=== PATIENT | male | born 1965 ===

== ENCOUNTER 2018-06-10 06:19 | Day surgery (SDC) | payer BC ==
--- NOTE | 2018-05-28 09:05 | HP ---
AMENDED REPORT NOW INCLUDES COSIGNER DESIGNATION CC: Dr. Shell * PREOPERATIVE HISTORY AND PHYSICAL: DATE OF ADMISSION/SURGERY: DATE OF PREOPERATIVE HISTORY AND PHYSICAL EXAMINATION: 05/27/18. This patient is scheduled for same-day surgery by Dr. Hurd on 06/10/18. ATTENDING SURGEON: Dr. Viral Hurd * (dictated by Reina James NP). CHIEF COMPLAINT: Umbilical hernia. HISTORY OF PRESENT ILLNESS: The patient is a 53-year-old male referred to Dr. Hurd by Dr. Shell for evaluation of umbilical hernia. The patient reports he has had an umbilical hernia for about 1 year; he denies any pain, but notes that the hernia is enlarging and he has had to manually reduce it. He denies any signs or symptoms to suggest incarceration or strangulation. He has never had abdominal surgery. Dr. Hurd examined the patient and notes a reducible umbilical hernia with a 1 [address] Hurd reviewed the findings with the patient and has recommended open umbilical hernia repair with possible mesh as a same-day surgery procedure and has discussed the nature of the surgical procedure, the rationale for the procedure, the relevant risks and benefits, and today I reviewed the expected postoperative care and recovery. The patient has had a chance to ask questions and stated that he understands the information and is satisfied with the answers given to his questions. He will sign surgical consent on the day of surgery. PAST MEDICAL HISTORY: Osteoarthritis in both hips. PAST SURGICAL HISTORY: Right hip resurfacing in January 2018 in [place]. MEDICATIONS: None currently. ALLERGIES: No known drug allergies. SOCIAL HISTORY: He is and is a senior [employer] developer; he is a nonsmoker and rarely drinks alcohol and denies the use of other substances. FAMILY HISTORY: No known anesthesia complications, bleeding tendencies, or clotting disorders. REVIEW OF SYSTEMS: Constitutional: No fevers, chills, excessive fatigue, or weight loss. Endocrine: No diabetes or thyroid disease. Hematologic: No easy bruising or bleeding. He has never received a blood transfusion. Respiratory: No dyspnea on exertion. No chronic cough. Cardiovascular: No anginal chest pain. No palpitations. Gastrointestinal: No nausea, vomiting, diarrhea, GI bleeding, or constipation. No change in bowel habits. Genitourinary: No dysuria. Musculoskeletal: No complaints of back or joint pain. He does have osteoarthritis in both hips. Integumentary: No chronic rashes or skin changes. Neurologic: No headache or blurred vision. No areas of focal weakness or numbness. General: No history of deep vein thrombosis or pulmonary embolism. No previous anesthesia complications. No bleeding tendencies. PHYSICAL EXAMINATION GENERAL SURVEY: The patient is a 53-year-old male, well developed, well nourished, in no acute distress. VITAL SIGNS: Height 72 inches, weight 201 pounds, body mass index 27.3. Blood pressure 120/82, pulse 72 and regular, respiratory rate 16, temperature 97.3 tympanic. HEENT: Benign. NECK: Supple. No cervical lymphadenopathy. LUNGS: Breath sounds bilaterally clear and equal. HEART: Regular rate and rhythm. No murmurs or rubs appreciated. ABDOMEN: Active bowel sounds. Obvious umbilical hernia, reducible, 1 to 2 cm defect, nontender. No other obvious masses or organomegaly. Abdomen is soft and nondistended. GENITALIA: Exam deferred. RECTAL: Exam deferred. BACK: No CVA tenderness. EXTREMITIES: Warm without edema or skin ulceration. NEUROLOGIC: Alert and oriented x3. Steady gait. SKIN: Warm, dry, intact. IMPRESSION: Umbilical hernia. PLAN: Same-day surgery admission to Dr. Hurd' service on 06/10/18, for open umbilical hernia repair with possible mesh. CARMENCITA JAMES, FACUNDO [id number]/[facility] #: [id number] [facility]ITALBib
[~2018-06-10 06:19] MED LIST: Buffered Lidocaine 0.9% SYRIN* 5 ML/SYR SYRINGE INTRADERM ONE; Sodium Citrate/Citric Acid* 15 ML UDC PO ONE
[2018-06-10] MEDS ORDERED: ceFAZolin 2 GM PREMIX in ORs 2 GM/50 ML BAG IVPB ONE (06:42)
[2018-06-10] MEDS ORDERED: Sodium Citrate/Citric Acid* 15 ML UDC ONE (06:42)
[2018-06-10] MEDS ORDERED: Buffered Lidocaine 0.9% SYRIN* 5 ML/SYR SYRINGE ONE (06:43)
[2018-06-10] MEDS ORDERED: Bupivacaine 0.5% W/EPI SDV* 30 ML VIAL ONE (07:12)
[2018-06-10] MEDS ORDERED: Lidocaine 1% INJ* 10 MG/ML 30 ML SDV ONE (07:12)
[2018-06-10] MEDS ORDERED: fentaNYL* 50 MCG/ML 2 ML VIAL (100 MCG VIAL) ONE (07:22)
[2018-06-10] MEDS ORDERED: Midazolam* 1 MG/ML 2 ML VIAL (2 MG) ONE (07:22)
[2018-06-10] MEDS ORDERED: Propofol* 10 MG/ML 20 ML BTL IV PUSH ONE (07:33)
[2018-06-10] MEDS ORDERED: Lidocaine 2% PF * 5 ML VIAL ONE (07:33)
[2018-06-10] MEDS ORDERED: Naloxone* 0.4 MG/ML 1 ML VIAL IV PRN (07:55)
--- NOTE | 2018-06-10 08:12 | OP ---
Operative Report - Blank - Operative Report Date of Operation: 06/10/18 Note: Brief Operative Note Preop Dx: umbilical hernia Postop Dx: same Procedure: open repair umbilical hernia (primary repair) Anesthesia: local MAC Surgeon: Vickey Skip Loader: MIK Holguin Fluids: 700 ml RL EBL: none Specimen: none Drains: none Findings: dictated
[2018-06-10] MEDS ORDERED: Acetaminophen TAB* 325 MG PO PRN (08:13)
[2018-06-10 09:17] VITALS: BP 114/90
--- NOTE | 2018-06-12 08:59 | OP ---
CC: Dr. Orestes Shell * DATE OF SURGERY: 06/10/18 - [facility] DATE OF : 65 SURGEON: Dr. Hurd. DAIRY CONSULTANT: MIK Morataya ANESTHESIA: Local MAC. PRE-OP DIAGNOSIS: Umbilical hernia. POST-OP DIAGNOSIS: Umbilical hernia. OPERATIVE PROCEDURE: Open repair of umbilical hernia. ESTIMATED BLOOD LOSS: None. IV FLUIDS: 700 mL crystalloid. SPECIMENS: None. DRAINS: None. COMPLICATIONS: None. COUNTS: Instrument, needle, and sponge counts correct. DESCRIPTION OF PROCEDURE: The patient was brought to the operating room and placed on the table supine. Sequential compression devices were placed on both lower extremities. Intravenous antibiotics were administered. Intravenous sedation was administered. He was prepped and draped in the usual sterile fashion and time-out was performed. Local anesthetic was infiltrated into the skin and soft tissue surrounding the umbilicus. A curvilinear infraumbilical incision was created and the umbilical stalk was dissected out, elevated off the abdominal wall. Fat-containing umbilical hernia was identified. The defect itself was about 1.5 cm. The edges of the fascia were identified and then the defect was closed with 0 Ethibond suture in [id number] fashion. The umbilical stalk was reapproximated to the anterior abdominal wall with 3-0 Vicryl. Skin incision was closed with 4-0 Monocryl in subcuticular fashion and Steri-Strips were applied. Dressing was applied. The patient tolerated this procedure well, was extubated and transferred to Recovery in stable condition. [id number]/[facility] #: [id number] MTDD
== END 2018-06-10 10:00 | disposition home or self-care (01) ==
LOC: OR 06:19
PROVIDERS: ATTEND Surgery
DX: K42.9 Umbilical hernia without obstruction or gangrene (principal); Z87.891 Personal history of nicotine dependence; M19.90 Unspecified osteoarthritis, unspecified site; R00.2 Palpitations
CPT/HCPCS: A9270-GY; J0690; J2250; J2704; J3010

== ENCOUNTER 2018-12-17 07:59 | Emergency (ER) | payer BC ==
[2018-12-17 08:08] VITALS: BP 132/91
--- NOTE | 2018-12-17 14:06 | UC ---
Throat Pain/Nasal Moisés HPI - HPI Summary HPI Summary: PATIENT ARRIVES COMPLAINING OF 18 HOURS OF SORE THROAT. NO INCREASE IN PAIN WITH SWALLOWING. DENIES ANY FEVER. NO COUGH, CONGESTION, NAUSEA OR ANY OTHER SYMPTOMS. IS REQUESTING A STREP TEST. - History of Current Complaint Chief Complaint: UCGeneralIllness Stated Complaint: SORE THROAT Time Seen by Provider: 12/17/18 08:11 Hx Obtained From: Patient Onset/Duration: Gradual Onset, Still Present Severity: Mild Pain Intensity: 2 Pain Scale Used: 0-10 Numeric Cough: None Associated Signs & Symptoms: Negative: Nasal Discharge, Fever - Allergies/Home Medications Allergies/Adverse Reactions: Allergies Allergy/AdvReac Type Severity Reaction Status Date / Time No Known Allergies Allergy Verified 12/17/18 08:09 PMH/Surg Hx/FS Hx/Imm Hx Previously Healthy: Yes - Surgical History Surgical History: Yes Surgery Procedure, Year, and Place: RIGHT HIP RESURFACED-01/[id number] left [facility] 2019,hernia repair - Family History Known Family History: Positive: Non-Contributory - Social History Alcohol Use: Occasionally Substance Use Type: None Smoking Status (MU): Former Smoker Amount Used/How Often: 1 PACK PER YEAR When Did the Patient Quit Smoking/Using Tobacco: 5-10 YEARS AGO Review of Systems All Other Systems Reviewed And Are Negative: Yes Constitutional: Positive: Negative ENT: Positive: Sore Throat Respiratory: Positive: Negative Cardiovascular: Positive: Negative Gastrointestinal: Positive: Negative Physical Exam Triage Information Reviewed: Yes Appearance: Well-Appearing, No Pain Distress, Well-Nourished Vital Signs: Initial Vital Signs Temp 98.5 F 12/17/18 08:05 Pulse 73 12/17/18 08:05 Resp 16 12/17/18 08:05 BP 132/91 12/17/18 08:05 Pulse Ox 100 12/17/18 08:05 Laboratory Tests 12/17/18 08:18 Group A Strep Rapid Negative Vital Signs Reviewed: Yes Eyes: Positive: Conjunctiva Clear ENT: Positive: Hearing grossly normal, Pharyngeal erythema, TMs normal. Negative: Tonsillar swelling, Tonsillar exudate Neck: Positive: Supple, Nontender, No Lymphadenopathy Respiratory Exam: Normal Cardiovascular Exam: Normal Abdomen Description: Positive: Soft Musculoskeletal: Positive: No Edema Neurological: Positive: Alert Psychological: Positive: Age Appropriate Behavior Skin: Negative: Rashes Throat Pain/Nasal Course/Dx - Differential Dx/Diagnosis Provider Diagnosis: Acute pharyngitis Discharge - Sign-Out/Discharge Documenting (check all that apply): Patient Departure All imaging exams completed and their final reports reviewed: No Studies - Discharge Plan Condition: Stable Disposition: HOME Patient Education Materials: Pharyngitis (ED) Referrals: Orestes Shell DO [Primary Care Provider] - If Needed Additional Instructions: STREP TEST NEGATIVE. YOUR SYMPTOMS ARE LIKELY VIRALLY MEDIATED AND SHOULD RESOLVE ON THEIR OWN WITH TIME. NO INDICATION FOR ANTIBIOTICS AT PRESENT. REST, HYDRATE, OTC MEDS NEEDED. SEEK FOLLOW-UP IF YOU ARE NOT IMPROVING OVER THE NEXT 1-2 WEEKS. - Billing Disposition and Condition Condition: STABLE Disposition: Home
== END 2018-12-17 08:37 | disposition home or self-care (01) ==
LOC: UCEAST 07:59
DX: J02.9 Acute pharyngitis, unspecified (principal); Z87.891 Personal history of nicotine dependence
CPT/HCPCS: 87651; 99211; G0463